=== PATIENT | male | born 1985 | race Caucasian/White ===

== ENCOUNTER 2023-05-27 06:47 | Emergency (ER) | payer MEDICAID ==
[~2023-05-27] VITALS: Ht 182.9 cm; Wt 93.0 kg
[2023-05-27 06:59] VITALS: O2SAT 98
[2023-05-27] MEDS ORDERED: IBUPROFEN 600MG TABLET PO ONE (10:15)
[2023-05-27] MEDS ORDERED: TETANUS, DIPHTHERIA, PERTUSSIS VAC/PF 0.5ML (>10YR OLD) IM ONE ×2 (10:15→13:45)
[2023-05-27] MEDS ORDERED: LIDOCAINE HCL/PF 1% 10 MG/ML 5ML VIAL INFIL ONE ×2 (10:15→12:15)
[2023-05-27] MEDS ORDERED: BACITRACIN ZINC OINT UDPKT TOP ONE (10:15)
[2023-05-27] MEDS ORDERED: ACETAMINOPHEN 325MG TABLET PO ONE (11:15)
[2023-05-27] MEDS ORDERED: CEPH500T MT (12:29)
[2023-05-27] MEDS ORDERED: NAPR-681 MT (12:30)
[2023-05-27] MEDS ORDERED: ACET-2708 MT (12:30)
[2023-05-27] MEDS ORDERED: BO1 TP (12:31)
[2023-05-27 13:45] VITALS: BP 121/76; PULSE 70; RESP 14
[2023-05-27] MEDS ORDERED: IBUPROFEN 600MG TABLET PO NR (13:45)
[2023-05-27] MEDS: ACETAMINOPHEN 325MG TABLET PO NR ×2 (13:45→14:58)
[2023-05-27] MEDS ORDERED: LIDOCAINE HCL/PF 1% 10 MG/ML 5ML VIAL INFIL NR (13:45)
[2023-05-27 14:58] VITALS: TEMP 97.7
== END 2023-05-27 14:59 | disposition home or self-care (01) ==
LOC: ER 06:47
DX: S51.011A Laceration without foreign body of right elbow, initial encounter (principal); V18.0XXA Pedal cycle driver injured in noncollision transport accident in nontraffic accident, initial encounter; Y93.89 Activity, other specified; Y92.89 Other specified places as the place of occurrence of the external cause; Y99.8 Other external cause status
CPT/HCPCS: 73080; 73130; 12002; 99284; J3490; Z7610; 90715